=== PATIENT | male | born 1975 | race Caucasian/White ===

== ENCOUNTER 2020-08-14 11:13 | Outpatient (CLI) | payer OTHER | END 2020-08-14 11:14 | disposition home or self-care (01) | LOC: LAB 11:13 | PROVIDERS: ATTEND Specialist | DX: R19.7 Diarrhea, unspecified (principal) | CPT/HCPCS: 81599; 82705; 82784; 83516; 83520; 83993; 87177; 87209; 87329 ==

== ENCOUNTER 2021-11-14 11:01 | Outpatient (CLI) | payer OTHER ==
[2021-11-14] MEDS ORDERED: ALBUTEROL 1 PUFF INH STA (13:01)
== END 2021-11-14 11:02 | disposition home or self-care (01) ==
LOC: RT 11:01
PROVIDERS: ATTEND Student in an Organized Health Care Education/Training Program
DX: R05.9 Cough, unspecified (principal)
CPT/HCPCS: 94060; 94727; 94729